=== PATIENT | female | born 1985 | race Asian ===

== ENCOUNTER 2023-09-02 08:46 | Emergency (ER) | payer OTHER ==
[~2023-09-02] VITALS: Ht 157.5 cm; Wt 58.6 kg
[2023-09-02] MEDS ORDERED: BENA25CA4 PO (09:03)
[2023-09-02] MEDS ORDERED: NS 1,000 ML IV ONE (09:25)
[2023-09-02] MEDS ORDERED: diphenhydrAMINE 50MG/ML VIAL IV ONE (09:25)
[2023-09-02] MEDS ORDERED: methylPREDNISolone 125MG 2ML VIAL IV ONE (09:25)
[2023-09-02] MEDS ORDERED: FAMOTIDINE 20MG/2ML VIAL IVP ONE (09:25)
[2023-09-02 09:53] LABS: BASO % 0.8 % (0.0-1.0); EOS # 0.2 10^3/uL (0.0-0.5); HEMOGLOBIN 12.5 g/dl (12.0-15.5); LYMPH # 1.4 10^3/uL (1.5-5.0); LYMPH % 37.9 % (24.0-44.0); MEAN CORPUSCULAR HEMOGLOBIN 30.8 pg (27.0-33.0); MEAN CORPUSCULAR HGB CONC 32.9 g/dl (32.0-36.5); MEAN CORPUSCULAR VOLUME 93.6 fl (80.0-96.0); MONO # 0.3 10^3/uL (0.0-0.8); MONO % 7.3 % (2.0-8.0); NEUTROPHILS # 1.9 10^3/uL (1.5-8.5); NEUTROPHILS % 49.7 % (36.0-66.0); PLATELET COUNT, AUTOMATED 258 10^3/uL (150-450); RED BLOOD COUNT 4.06 10^6/uL (4.00-5.40); WHITE BLOOD COUNT 3.7 10^3/uL (4.0-10.0)
[2023-09-02 10:24] LABS: BLOOD UREA NITROGEN 9 MG/DL (9-23); CALCIUM LEVEL 8.9 MG/DL (8.5-10.1); CARBON DIOXIDE LEVEL 26 MMOL/L (20-31); CHLORIDE LEVEL 110 MMOL/L (98-107); CREATININE FOR GFR 0.61 MG/DL (0.55-1.30); GLOMERULAR FILTRATION RATE > 60.0 (>60); GLUCOSE, FASTING 86 MG/DL (60-100); POTASSIUM SERUM 3.7 MMOL/L (3.5-5.1); SODIUM LEVEL 140 MMOL/L (136-145)
[2023-09-02 10:31] LABS: HCG, SERUM QUALITATIVE NEGATIVE (NEGATIVE)
[2023-09-02] MEDS ORDERED: diphenhydrAMINE 50MG/ML VIAL IV STA (11:29)
[2023-09-02] MEDS ORDERED: PRED20TA PO (12:27)
[2023-09-02] MEDS ORDERED: PEPC1TAB5 PO (12:27)
[2023-09-02 12:30] VITALS: BP 132/88
[2023-09-02 12:31] VITALS: TEMP 97.8; O2SAT 100
== END 2023-09-02 12:39 | disposition home or self-care (01) ==
LOC: M ED 08:46
DX: T78.40XA Allergy, unspecified, initial encounter (principal); Z79.52 Long term (current) use of systemic steroids; Z79.899 Other long term (current) drug therapy
CPT/HCPCS: 80048; 84703; 85025; 93041; 94760; 96361; 96374; 96375; 99285; J1200; J2930; S0028

== ENCOUNTER 2023-09-13 13:49 | Emergency (ER) | payer OTHER ==
[~2023-09-13 13:49] MED LIST: BENA25CA4 PO; PEPC1TAB5 PO; PRED20TA PO
[2023-09-13 14:53] LABS: BASO % 0.7 % (0.0-1.0); EOS # 0.1 10^3/uL (0.0-0.5); EOS % 2.3 % (0.0-3.0); HEMATOCRIT 37.6 % (36.0-47.0); HEMOGLOBIN 12.5 g/dl (12.0-15.5); LYMPH # 1.3 10^3/uL (1.5-5.0); MEAN CORPUSCULAR HEMOGLOBIN 30.9 pg (27.0-33.0); MEAN CORPUSCULAR HGB CONC 33.2 g/dl (32.0-36.5); MEAN CORPUSCULAR VOLUME 92.8 fl (80.0-96.0); MONO # 0.4 10^3/uL (0.0-0.8); MONO % 9.2 % (2.0-8.0); NEUTROPHILS # 2.5 10^3/uL (1.5-8.5); NEUTROPHILS % 57.6 % (36.0-66.0); PLATELET COUNT, AUTOMATED 284 10^3/uL (150-450); RED BLOOD COUNT 4.05 10^6/uL (4.00-5.40); WHITE BLOOD COUNT 4.4 10^3/uL (4.0-10.0)
[2023-09-13] MEDS: predniSONE 20 MG TAB PO ONE (14:55)
[2023-09-13] MEDS: FAMOTIDINE 20 MG TAB PO ONE (14:55)
[2023-09-13] MEDS ORDERED: CETI10CH PO (15:32)
[2023-09-13] MEDS ORDERED: PRED10TA2 PO (15:32)
[2023-09-13 16:26] VITALS: BP 124/84; TEMP 97.7; O2SAT 98
[2023-09-13 16:28] LABS: ERYTHROCYTE SEDIMENTATION RATE 1 mm/hr (0-20)
== END 2023-09-13 16:39 | disposition home or self-care (01) ==
LOC: M ED 13:49
DX: T78.40XA Allergy, unspecified, initial encounter (principal); Z79.899 Other long term (current) drug therapy; Z79.52 Long term (current) use of systemic steroids
CPT/HCPCS: 36415; 80047; 83519; 84702; 85025; 85280; 85652; 86140; 86160; 86161; 99283; J7512

== ENCOUNTER 2024-12-17 11:05 | Emergency (ER) | payer OTHER ==
[~2024-12-17] VITALS: Ht 165.1 cm; Wt 79.0 kg
[~2024-12-17 11:05] MED LIST changes: +CETI10CH PO; +PRED10TA2 PO
[2024-12-17] MEDS ORDERED: EPIP0.3I2 IM (11:32)
[2024-12-17 14:36] VITALS: BP 120/85; TEMP 98.9; O2SAT 100
[2024-12-17] MEDS ORDERED: PRED10TA2 PO (16:21)
== END 2024-12-17 16:29 | disposition home or self-care (01) ==
LOC: M ED 11:05
DX: T78.40XA Allergy, unspecified, initial encounter (principal); Z91.09 Other allergy status, other than to drugs and biological substances; Z79.52 Long term (current) use of systemic steroids; Z79.899 Other long term (current) drug therapy